=== PATIENT | female | born 1980 | race American Indian/Alaskan Native ===

== ENCOUNTER 2016-07-05 15:36 | Outpatient (CLI) | payer MEDICAID ==
--- NOTE | 2016-07-06 08:47 | Mammography Report ---
BILATERAL DIGITAL SCREENING MAMMOGRAM with CAD: 07/05/16 15:36:00 CLINICAL: Baseline screening. FINDINGS: The breasts are almost entirely fatty.Several small benign left oil cysts No mass, architectural distortion or suspicious calcifications. IMPRESSION: No mammographic evidence of malignancy. BI-RADS CATEGORY: 2 -- Benign RECOMMENDATION: Routine mammographic screening based on ACS guidelines. COMMENT: Patient follow-up letters are generated by our [employer] application.
== END 2016-07-05 15:37 | disposition home or self-care (01) ==
LOC: SPVWC 15:36
PROVIDERS: ATTEND Nurse Practitioner Family
DX: Z12.31 Encounter for screening mammogram for malignant neoplasm of breast (principal)
CPT/HCPCS: 77067; G0202

== ENCOUNTER 2016-12-22 15:24 | Emergency (ER) | payer SELFPAY ==
[2016-12-22 16:06] VITALS: BP 121/83
== END 2016-12-22 16:30 | disposition left against medical advice (07) ==
LOC: ED 15:24
DX: M25.511 Pain in right shoulder (principal); Z53.21 Procedure and treatment not carried out due to patient leaving prior to being seen by health care provider

== ENCOUNTER 2017-06-14 11:35 | Outpatient (CLI) | payer MEDICAID | END 2017-06-14 11:36 | disposition home or self-care (01) | LOC: ECHO 11:35 | PROVIDERS: ATTEND Internal Medicine Cardiovascular Disease | DX: I07.1 Rheumatic tricuspid insufficiency (principal); I34.1 Nonrheumatic mitral (valve) prolapse; Q21.1 Atrial septal defect | CPT/HCPCS: 93306 ==

== ENCOUNTER 2021-11-29 08:59 | Emergency (ER) | payer MEDICAID ==
[2021-11-29] MEDS ORDERED: MORPHINE 4 MG/1 ML INJ IV ONE (09:29)
[2021-11-29] MEDS ORDERED: ONDANSETRON 4 MG/2 ML INJ IV ONE (09:29)
[2021-11-29] MEDS ORDERED: SODIUM CHLORIDE 0.9% 1000 ML 1,000 ML IV ONE (09:29)
[2021-11-29 10:33] LABS: Basophils % (Auto) 0.2 % (0.0-1.8); Eosinophils % (Auto) 0.1 % (0.0-4.3); Hematocrit 35.7 % (30.3-42.9); Hemoglobin 11.3 gm/dl (10.1-14.3); Lymphocytes # (Auto) 0.5 K/mm3 (1.2-5.4); Lymphocytes % (Auto) 19.4 % (13.4-35.0); Mean Corpuscular HGB Conc 32 % (30-34); Mean Corpuscular Volume 99 fl (79-97); Monocytes # (Auto) 0.1 K/mm3 (0.0-0.8); Monocytes % (Auto) 3.1 % (0.0-7.3); Platelet Count 139 K/mm3 (140-440); Red Blood Count 3.61 M/mm3 (3.65-5.03)
[2021-11-29 10:35] LABS: Bacteria,Urine 1+ /HPF (Negative); Hyaline Casts,Urine 1 /LPF; Mucus,Urine FEW /HPF
[2021-11-29 10:40] LABS: Red Cell Distribution Width 20.7 % (13.2-15.2)
[2021-11-29 10:48] LABS: INR 0.76 (0.87-1.13)
[2021-11-29 10:49] LABS: Color,Urine Straw (Yellow)
[2021-11-29 10:53] LABS: BUN/Creatinine Ratio 16; Blood Urea Nitrogen 13 mg/dL (7-17); Calcium 9.3 mg/dL (8.4-10.2); Hemolysis Index 30
--- NOTE | 2021-11-29 12:26 | Cat Scan Report ---
CT ABDOMEN AND PELVIS WITH CONTRAST INDICATION / CLINICAL INFORMATION: pain. TECHNIQUE: Axial CT images were obtained through the abdomen and pelvis after 100 cc of Omnipaque [address] scans at this location are performed using CT dose reduction for ALARA by means of automated exposure control. COMPARISON: None available. FINDINGS: LOWER CHEST: No significant abnormality. LIVER: No significant abnormality. GALLBLADDER: No significant abnormality. BILE DUCTS: No significant abnormality. PANCREAS: No significant abnormality. SPLEEN: No significant abnormality. ADRENALS: No significant abnormality. RIGHT KIDNEY / URETER: There is perinephric edema. There is no hydronephrosis. The is some enhancemen t of the urothelium. LEFT KIDNEY / URETER: No significant abnormality. STOMACH / SMALL BOWEL: No significant abnormality. COLON: No significant abnormality. APPENDIX: No significant abnormality. PERITONEUM: No free fluid. No free air. No fluid collection. LYMPH NODES: No significant adenopathy. AORTA / ARTERIES: No significant abnormality. IVC / VEINS: No significant abnormality. URINARY BLADDER: There is air in the urinary bladder. REPRODUCTIVE ORGANS: No significant abnormality. ADDITIONAL FINDINGS: There are a few phleboliths in the pelvis. SKELETAL SYSTEM: No significant abnormality. IMPRESSION: 1. There is perinephric edema on the right. No focal renal lesion is seen. There is no hydronephrosis . There is some enhancement of the right urothelium. The appearance could represent pyelonephritis/UT I. The possibility that the appearance could result from a recently passed stone is included in the d ifferential diagnosis. 2. Signer Name: Nilay Delacruz MD Signed: 11/29/2021 12:21 PM Workstation Name: [id number]
[2021-11-29] MEDS ORDERED: KETOROLAC 30 MG/1 ML INJ IV ONE (12:37)
--- NOTE | 2021-11-29 12:40 | Emergency Department Report ---
ED Abdominal Pain HPI - General Chief Complaint: Abdominal Pain Stated Complaint: RT SIDE ABD PAIN PUI?: No Time Seen by Provider: 11/29/21 09:29 Source: patient, EMS Mode of arrival: Stretcher Limitations: No Limitations - History of Present Illness Initial Comments: pt here with complaint of lower right quadrant pain, sudden onset 0300 this morning, vomiting during triage MD Complaint: abdominal pain -: Sudden, hour(s) Location: RLQ Radiation: none Severity scale (0 -10): 10 Quality: aching Consistency: intermittent Improves With: nothing Worsens With: nothing - Related Data Previous Rx's Medication Instructions Recorded Last Taken Type Amoxicillin [Amoxicillin TAB] 875 mg PO BID #20 tablet 04/10/13 Unknown Rx HYDROcodone/APAP 5-325 [Bryson 1 each PO Q6HR PRN #15 tablet 04/10/13 Unknown Rx 5/325 mg] Allergies Allergy/AdvReac Type Severity Reaction Status Date / Time No Known Allergies Allergy Verified 11/29/21 09:10 ED Review of Systems ROS: Stated complaint: RT SIDE ABD PAIN Other details as noted in HPI Constitutional: denies: chills, fever Eyes: denies: eye pain, eye discharge, vision change ENT: denies: ear pain, throat pain Respiratory: denies: cough, shortness of breath, wheezing Cardiovascular: denies: chest pain, palpitations Endocrine: no symptoms reported Gastrointestinal: denies: abdominal pain, nausea, diarrhea Genitourinary: denies: urgency, dysuria, discharge Musculoskeletal: denies: back pain, joint swelling, arthralgia Skin: denies: rash, lesions Neurological: denies: headache, weakness, paresthesias Psychiatric: denies: anxiety, depression Hematological/Lymphatic: denies: easy bleeding, easy bruising ED Past Medical Hx - Past Medical History Hx CVA: Yes (TIA) Hx Diabetes: Yes Additional medical history: ASD, - Surgical History Hx Cholecystectomy: Yes Additional Surgical History: 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 - Social History Smoking Status: Light Tobacco Smoker Substance Use Type: Alcohol - Medications Home Medications: Home Medications Medication Instructions Recorded Confirmed Last Taken Type Amoxicillin [Amoxicillin TAB] 875 mg PO BID #20 tablet 04/10/13 Unknown Rx HYDROcodone/APAP 5-325 [Bryson 1 each PO Q6HR PRN #15 tablet 04/10/13 Unknown Rx 5/325 mg] ED Physical Exam - General Limitations: No Limitations General appearance: alert, in no apparent distress - Head Head exam: Present: atraumatic, normocephalic - Eye Eye exam: Present: normal appearance - ENT ENT exam: Present: mucous membranes moist - Neck Neck exam: Present: normal inspection - Respiratory Respiratory exam: Present: normal lung sounds bilaterally. Absent: respiratory distress - Cardiovascular Cardiovascular Exam: Present: regular rate, normal rhythm. Absent: systolic m urmur, diastolic murmur, rubs, gallop - GI/Abdominal GI/Abdominal exam: Present: soft, tenderness - Extremities Exam Extremities exam: Present: normal inspection - Back Exam Back exam: Present: normal inspection - Neurological Exam Neurological exam: Present: alert, oriented X3 - Psychiatric Psychiatric exam: Present: normal affect, normal mood - Skin Skin exam: Present: warm, dry, intact, normal color. Absent: rash ED Course Vital Signs 11/29/21 11/29/21 11/29/21 09:07 09:50 09:51 Pulse Rate 84 78 Respiratory 16 15 Rate Blood Pressure 134/81 Blood Pressure 152/97 [Left] O2 Sat by Pulse 98 100 100 Oximetry 11/29/21 11/29/21 11/29/21 09:53 10:12 10:13 Pulse Rate 79 78 77 Respiratory 15 16 14 Rate Blood Pressure 134/81 137/80 137/80 Blood Pressure [Left] O2 Sat by Pulse 100 100 100 Oximetry 11/29/21 11/29/21 11/29/21 10:15 10:17 10:19 Pulse Rate 79 80 80 Respiratory 15 13 11 L Rate Blood Pressure 137/80 137/80 137/80 Blood Pressure [Left] O2 Sat by Pulse 100 100 100 Oximetry 11/29/21 11/29/21 11/29/21 10:21 10:23 10:25 Pulse Rate 79 78 77 Respiratory 20 11 L 10 L Rate Blood Pressure 137/80 137/80 137/80 Blood Pressure [Left] O2 Sat by Pulse 100 100 100 Oximetry 11/29/21 11/29/21 11/29/21 10:27 10:28 10:29 Pulse Rate 82 77 80 Respiratory 13 11 L 12 Rate Blood Pressure 137/80 134/81 137/80 Blood Pressure [Left] O2 Sat by Pulse 100 100 100 Oximetry 09/12/22 09/12/22 09/12/22 10:31 10:33 10:35 Pulse Rate 75 80 78 Respiratory 11 L 11 L 12 Rate Blood Pressure 137/80 137/80 137/80 Blood Pressure [Left] O2 Sat by Pulse 100 100 100 Oximetry 11/29/21 11/29/21 11/29/21 10:36 10:37 10:39 Pulse Rate 79 80 79 Respiratory 11 L 14 15 Rate Blood Pressure 137/80 134/81 134/81 Blood Pressure [Left] O2 Sat by Pulse 100 100 100 Oximetry 11/29/21 11/29/21 11/29/21 10:41 10:42 10:43 Pulse Rate 77 81 78 Respiratory 14 15 13 Rate Blood Pressure 134/81 137/80 137/80 Blood Pressure [Left] O2 Sat by Pulse 100 100 100 Oximetry 11/29/21 11/29/21 11/29/21 10:45 10:47 10:49 Pulse Rate 80 83 84 Respiratory 14 18 20 Rate Blood Pressure 137/80 137/80 137/80 Blood Pressure [Left] O2 Sat by Pulse 100 100 100 Oximetry 11/29/21 11/29/21 11/29/21 10:51 10:53 10:55 Pulse Rate 80 80 82 Respiratory 19 19 21 Rate Blood Pressure 137/80 137/80 137/80 Blood Pressure [Left] O2 Sat by Pulse 100 100 100 Oximetry 11/29/21 11/29/21 11/29/21 10:57 10:59 11:01 Pulse Rate 81 78 81 Respiratory 19 22 22 Rate Blood Pressure 137/80 137/80 137/80 Blood Pressure [Left] O2 Sat by Pulse 100 100 100 Oximetry 11/29/21 11/29/21 11/29/21 11:03 11:05 11:07 Pulse Rate 78 80 80 Respiratory 22 22 20 Rate Blood Pressure 137/80 137/80 137/80 Blood Pressure [Left] O2 Sat by Pulse 100 100 100 Oximetry 11/29/21 11/29/21 11/29/21 11:09 11:11 11:12 Pulse Rate 83 81 79 Respiratory 19 21 20 Rate Blood Pressure 137/80 137/80 139/76 Blood Pressure [Left] O2 Sat by Pulse 100 100 100 Oximetry 11/29/21 11/29/21 11/29/21 11:13 11:15 11:17 Pulse Rate 80 80 78 Respiratory 20 21 18 Rate Blood Pressure 139/76 139/76 139/76 Blood Pressure [Left] O2 Sat by Pulse 100 100 100 Oximetry 11/29/21 11/29/21 11/29/21 11:19 11:21 11:42 Pulse Rate 81 91 H 88 Respiratory 13 16 Rate Blood Pressure 139/76 139/76 139/76 Blood Pressure [Left] O2 Sat by Pulse 96 100 Oximetry 11/29/21 11/29/21 11/29/21 11:43 11:45 11:47 Pulse Rate 87 78 89 Respiratory 17 18 22 Rate Blood Pressure 118/73 118/73 118/73 Blood Pressure [Left] O2 Sat by Pulse 99 100 100 Oximetry 11/29/21 11/29/21 11/29/21 11:49 11:51 11:53 Pulse Rate 75 71 76 Respiratory 18 15 21 Rate Blood Pressure 118/73 118/73 118/73 Blood Pressure [Left] O2 Sat by Pulse 100 100 100 Oximetry 11/29/21 11/29/21 11/29/21 11:55 11:57 11:59 Pulse Rate 74 73 70 Respiratory 20 19 18 Rate Blood Pressure 118/73 118/73 118/73 Blood Pressure [Left] O2 Sat by Pulse 100 100 100 Oximetry ED Medical Decision Making - Lab Data Result diagrams: 11/29/21 09:57 11/29/21 09:29 Critical care attestation.: If time is entered above; I have spent that time in minutes in the direct care of this critically ill patient, excluding procedure time. ED Disposition Clinical Impression: Abdominal pain, Renal colic Disposition: 01 HOME / SELF CARE / HOMELESS Is pt being admited?: No Does the pt Need Aspirin: No Condition: Stable Instructions: Abdominal Pain (ED), Kidney Stones, [id number] Referrals: PRIMARY CARE, [Primary Care Provider] - 3-5 Days
[2021-11-29 13:28] VITALS: BP 123/68
== END 2021-11-29 13:15 | disposition home or self-care (01) ==
LOC: ED 08:59
DX: N23 Unspecified renal colic (principal); E11.9 Type 2 diabetes mellitus without complications; F17.200 Nicotine dependence, unspecified, uncomplicated; Z72.89 Other problems related to lifestyle; Z79.899 Other long term (current) drug therapy
CPT/HCPCS: 36415; 74177; 80048; 81001; 82150; 83690; 84703; 85025; 85610; 86140; 96361; 96374; 96375; 99284; J1885; J2270; J2405; J7030; Q9967